=== PATIENT | male | born 1975 | race Native Hawaiian/Other Pacific Islander ===

== ENCOUNTER 2019-08-28 19:08 | Inpatient (IN) | payer MEDICAID, OTHER ==
--- NOTE | 2019-08-28 19:59 | ED ---
General Adult HPI - General Chief complaint: Psychiatric Symptoms Stated complaint: mental health Time Seen by Provider: 08/28/19 19:42 Source: patient, RN notes reviewed, old records reviewed Mode of arrival: ambulatory Limitations: no limitations - History of Present Illness Initial comments: This is a 44-year-old who presents emergency Department stating his history of depression. Patient states he stopped drinking several months ago and he hasn't gone back to it. Patient states for the last 2 weeks she's been very depressed and keeps having suicidal thoughts because of a specific plan but the thoughts are not going away and getting a little stronger so decided come in today and get help. Patient states he has not attempted suicide in the past. Does states she's been diagnosed depression and was treated past. Patient denies any physical complaints today. Patient denies any homicidal thoughts today. Patient denies hearing voices or seeing anything abnormal. - Related Data Allergies Allergy/AdvReac Type Severity Reaction Status Date / Time No Known Allergies Allergy Verified 08/28/19 19:34 Review of Systems ROS Statement: Those systems with pertinent positive or pertinent negative responses have been documented in the HPI. ROS Other: All systems not noted in ROS Statement are negative. Past Medical History Past Medical History: No Reported History History of Any Multi-Drug Resistant Organisms: None Reported Past Surgical History: Joint Replacement Past Psychological History: Anxiety, Depression Smoking Status: Never smoker Past Alcohol Use History: None Reported Past Drug Use History: None Reported General Exam - General Exam Comments Initial Comments: GENERAL: Patient is well-developed and well-nourished. Patient is nontoxic and well-hydrated and is in no acute distress ENT: Neck is soft and supple. No significant lymphadenopathy is noted. Oropharynx is clear. Moist mucous membranes. Neck has full range of motion without eliciting any pain. EYES: The sclera were anicteric and conjunctiva were pink and moist. Extraocular movements were intact and pupils were equal round and reactive to light. Eyelids were unremarkable. PULMONARY: Unlabored respirations. Good breath sounds bilaterally. No audible rales rhonchi or wheezing was noted. CARDIOVASCULAR: There is a regular rate and rhythm without any murmurs gallops or rubs. ABDOMEN: Soft and nontender with normal bowel sounds. SKIN: Skin is clear with no lesions or rashes and otherwise unremarkable. NEUROLOGIC: Patient is alert and oriented x3. Cranial nerves II through XII are grossly intact. Motor and sensory are also intact. Normal speech, volume and content. Symmetrical smile. MUSCULOSKELETAL: Normal extremities with adequate strength and full range of motion. LYMPHATICS: No significant lymphadenopathy is noted PSYCHIATRIC: Patient states he feels very depressed and is having constant suicidal thoughts over the last 2 weeks. Limitations: no limitations Course Vital Signs 08/28/19 19:32 Temperature 98.5 F Pulse Rate 121 H Respiratory 20 Rate Blood Pressure 119/81 O2 Sat by Pulse 98 Oximetry Medical Decision Making - Medical Decision Making Dr. Del Valle will be taking over the care of this patient at 9 PM Disposition Referrals: Deion Chou MD [Primary Care Provider] - 1-2 days
[2019-08-28 22:31] LABS: Amphetamine Screen,Urine Not Detected (NotDetected); Barbiturate Screen,Urine Not Detected (NotDetected); Benzodiazepines Screen,Urine Not Detected (NotDetected); Cocaine Screen,Urine Not Detected (NotDetected); Methadone Screen, Urine Not Detected (NotDetected); Opiate Screen,Urine Not Detected (NotDetected); Oxycodone Screen, Urine Not Detected (NotDetected); Phencyclidine Screen,Urine Not Detected (NotDetected); Tricyclic Antidepressant,Urine Not Detected (NotDetected); Urn Cannabinoid Scrn Not Detected (NotDetected)
[2019-08-28] MEDS ORDERED: MAGNESIUM HYDROXIDE 2,400 MG/10 ML CUP PO PRN (22:45)
[2019-08-28] MEDS ORDERED: MAG HYDROX/AL HYDROX/SIMETH 30 ML CUP PO PRN (22:45)
[2019-08-28] MEDS ORDERED: traZODone HCL 50 MG TAB PO SCH (23:30)
[2019-08-28] MEDS ORDERED: ZIPRASIDONE 20 MG VIAL IM PRN (23:45)
[2019-08-28] MEDS: LORazepam 0.5 MG TAB PO SCH (23:50)
[2019-08-29] MEDS ORDERED: ESCITALOPRAM 20 MG TAB PO SCH (09:00)
[2019-08-29] MEDS: MULTIVITAMINS, THERA 1 EACH TAB PO SCH (09:47)
[2019-08-29] MEDS: ACETAMINOPHEN TAB 325 MG TAB PO PRN (09:47)
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
[2019-08-29] MEDS ORDERED: hydrOXYzine PAMOATE 25 MG CAP PO ONE (17:45)
[2019-08-29 21:07] LABS: Appearance,Urine Clear (Clear); Bilirubin,Urine Negative (Negative); Blood,Urine Negative (Negative); Color,Urine Light Yellow; Glucose,Urine (UA) Negative (Negative); Ketones,Urine Negative (Negative); Leukocyte Esterase,Urine Negative (Negative); Nitrite,Urine Negative (Negative); PH, Urine 6.5 (5.0-8.0); Protein,Urine Negative (Negative); Specific Gravity,Urine 1.011 (1.001-1.035); Urobilinogen,Urine <2.0 mg/dL (<2.0)
[2019-08-29] MEDS: LORazepam 0.5 MG TAB PO SCH (21:11)
[2019-08-29] MEDS: QUEtiapine 50 MG TAB PO SCH (21:11)
[2019-08-29] MEDS: LITHIUM CARBONATE 150 MG CAP PO SCH (21:11)
[2019-08-30] MEDS: DULoxetine HCL 30 MG CAPSULE.DR PO SCH (08:26)
[2019-08-30] MEDS: LITHIUM CARBONATE 150 MG CAP PO SCH ×2 (08:26→20:48)
[2019-08-30] MEDS: MULTIVITAMINS, THERA 1 EACH TAB PO SCH (08:26)
[2019-08-30] MEDS: ACETAMINOPHEN TAB 325 MG TAB PO PRN ×2 (08:26→16:48)
[2019-08-30 09:58] LABS: Basophils # (A) 0.1 k/uL (0-0.2); Basophils % (A) 1 %; Eosinophils # (A) 0.1 k/uL (0-0.7); Eosinophils % (A) 1 %; HCT 42.2 % (39.0-53.0); Lymphocytes % (A) 21 %; MCH 29.7 pg (25.0-35.0); MCHC 33.2 g/dL (31.0-37.0); MCV 89.7 fL (80.0-100.0); Mean Platelet Volume 6.6; Monocytes # (A) 0.4 k/uL (0-1.0); Monocytes % (A) 4 %; Neutrophils % (A) 73 %; Platelet Count 366 k/uL (150-450); RBC 4.71 m/uL (4.30-5.90); RDW 12.7 % (11.5-15.5); WBC 9.6 k/uL (3.8-10.6)
--- NOTE | 2019-08-30 11:50 | P.PN ---
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 He slept 7 hours last night , alcohol twice but was able to get back to sleep. His primary complaint was anxiety. He talked about a chronic feelings attention that fluctuates in intensity. Symptoms include "racing thoughts" and is unable to "calm" his mind. He has difficulty sitting still. He denied side effects initial dose of Cymbalta and lithium. He is participation in therapeutic groups and activities. He has posed no management problem. Objective - Vital Signs Vital signs: Vital Signs Temp 97.7 F 08/30/19 06:11 Pulse 108 H 08/30/19 06:11 Resp 16 08/30/19 06:11 BP 119/81 08/30/19 06:11 Pulse Ox 100 08/29/19 06:16 - Exam He presented as a tall, moderately obese male who was restless throughout the interview. He made eye contact and attended to the interview. His speech was spontaneous and intermittently pressured. His affect was anxious. He denied suicidal homicidal ideation. He did not express ideas of reference, thought insertion, thought broadcasting or paranoid thoughts. His thinking was abstract and associations were coherent, logical and goal directed. He denied hallucinations did not appear to be responding to internal stimuli. - Labs CBC & Chem 7: 08/30/19 09:13 Assessment and Plan Assessment: Ashley reports prominent anxiety symptoms not relieved by the initial doses of duloxetine and/or Seroquel. I wonder if his anxiety is related to an underlying mood disorder since his speech is occasionally pressured. Plan: Continue hospitalization. Safety precautions. Continue to duloxetine and l ithium and titrated according to clinical response and tolerance. Continue Seroquel 50 mg at bedtime when necessary for sleep. Continue lorazepam 0.5 mg at bedtime and consider switching from lorazepam to clonazepam. Continue participation in therapeutic groups and activities. Evaluate clinical status response to treatment daily basis.
[2019-08-30 13:55] LABS: ALT 27 U/L (4-49); AST 27 U/L (17-59); African American GFR (CKD) >90 (>60 ml/min/1.73 sqM); Albumin 4.8 g/dL (3.5-5.0); Alkaline Phosphatase 76 U/L (38-126); Anion Gap 11 mmol/L; Blood Urea Nitrogen 17 mg/dL (9-20); Calcium 9.9 mg/dL (8.4-10.2); Carbon Dioxide 22 mmol/L (22-30); Chloride 103 mmol/L (98-107); Glucose 142 mg/dL (74-99); Non-African American GFR(CKD) >90 (>60 ml/min/1.73 sqM); Potassium 4.6 mmol/L (3.5-5.1); Sodium 136 mmol/L (137-145); Total Bilirubin 0.6 mg/dL (0.2-1.3); Total Protein 7.6 g/dL (6.3-8.2)
[2019-08-30 15:15] LABS: Cholesterol 186 mg/dL (<200); HDL Cholesterol 42 mg/dL (40-60); LDL Cholesterol,Calculated 105 mg/dL (0-99); Triglycerides 194 mg/dL (<150)
[2019-08-30 18:26] LABS: Hemoglobin A1C 5.6 % (4.0-6.0)
[2019-08-30] MEDS: LORazepam 0.5 MG TAB PO SCH (20:49)
[2019-08-30] MEDS: QUEtiapine 50 MG TAB PO SCH (20:49)
[2019-08-31] MEDS: DULoxetine HCL 30 MG CAPSULE.DR PO SCH (08:25)
[2019-08-31] MEDS: LITHIUM CARBONATE 150 MG CAP PO SCH ×3 (08:25→20:49)
[2019-08-31] MEDS: MULTIVITAMINS, THERA 1 EACH TAB PO SCH (08:25)
[2019-08-31] MEDS: ACETAMINOPHEN TAB 325 MG TAB PO PRN ×2 (08:25→16:53)
--- NOTE | 2019-08-31 13:39 | P.PN ---
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 He reports continued feelings of anxiety the change from admission. He is sleeping through the night after taking Seroquel 50 mg at bedtime. He described experiencing a sense of "calm" after taking the evening dose of Ativan. He continues to feel depressed but denied thoughts of or suicide. He denied hallucinations. Objective - Vital Signs Vital signs: Vital Signs Temp 98.0 F 08/31/19 06:37 Pulse 105 H 08/31/19 06:37 Resp 16 08/31/19 06:37 BP 137/85 08/31/19 06:37 Pulse Ox 100 08/29/19 06:16 - Exam He was neatly groomed, casually dressed, pleasant and cooperative. His speech was at times rapid. He was anxious. He had a blunted but bright facial expression. He denied suicidal ideation or wishes. His thinking was abstract, coherent and goal directed. He did not appear to be responding to internal stimuli. - Labs CBC & Chem 7: 08/30/19 09:13 08/30/19 09:13 Labs: Abnormal Lab Results - Last 24 Hours (Table) 08/30/19 Range/Units 09:13 Sodium 136 L (137-145) mmol/L Glucose 142 H (74-99) mg/dL Triglycerides 194 H (<150) mg/dL LDL Cholesterol, Calc 105 H (0-99) mg/dL Assessment and Plan Assessment: He continues to described mild to moderate symptoms of depression and anxiety minimally change from admission. Plan: Increase duloxetine to 60 mg daily and lithium to 450 mg 3 times a day. Continue Seroquel 50 mg at bedtime and Ativan 0.5 mg in the evening.
[2019-08-31] MEDS: QUEtiapine 50 MG TAB PO SCH (20:48)
[2019-08-31] MEDS: LORazepam 0.5 MG TAB PO SCH (20:49)
[2019-09-01] MEDS: LITHIUM CARBONATE 150 MG CAP PO SCH ×3 (08:31→21:07)
[2019-09-01] MEDS: DULoxetine HCL 60 MG CAPSULE.DR PO SCH ×3 (08:31→08:33)
[2019-09-01] MEDS: MULTIVITAMINS, THERA 1 EACH TAB PO SCH (08:32)
[2019-09-01] MEDS: ACETAMINOPHEN TAB 325 MG TAB PO PRN ×2 (08:34→16:39)
--- NOTE | 2019-09-01 16:05 | P.PN ---
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 We discussed treatment options and agreed to a trial of Klonopin 0.5 mg by mouth twice a day. The experience some diarrhea and a slight hand tremor with the increased dose of lithium. Objective - Vital Signs Vital signs: Vital Signs Temp 98.3 F 09/01/19 06:48 Pulse 105 H 09/01/19 06:48 Resp 18 09/01/19 06:48 BP 113/85 09/01/19 06:48 Pulse Ox 100 08/29/19 06:16 Intake & Output 08/31/19 09/01/19 09/01/19 18:59 06:59 18:59 Weight 115.2 kg - Exam He is neatly groomed, pleasant and cooperative. He made eye contact and attended the interview. He had an anxious facial expression. His affect was anxious but expressive. He denied suicidal ideation or homicidal ideation. His thinking was organized, coherent and goal directed. - Labs CBC & Chem 7: 08/30/19 09:13 08/30/19 09:13 Assessment and Plan Assessment: He continues to described mild to moderate symptoms of depression and anxiety minimally change from admission. He is showing side effects to lithium. Plan: Continue duloxetine to 60 mg daily and lithium to 450 mg 3 times a day. Contin ue Seroquel 50 mg at bedtime. Discontinue Ativan 0.5 mg in the evening and start Klonopin 0.5 mg by mouth twice a day. Obtain lithium level after steady state.
[2019-09-01] MEDS: clonazePAM 0.5 MG TAB PO SCH (21:08)
[2019-09-01] MEDS: QUEtiapine 50 MG TAB PO SCH (21:08)
[2019-09-02] MEDS: LITHIUM CARBONATE 150 MG CAP PO SCH ×3 (09:00→21:18)
[2019-09-02] MEDS: MULTIVITAMINS, THERA 1 EACH TAB PO SCH (09:00)
[2019-09-02] MEDS: clonazePAM 0.5 MG TAB PO SCH ×2 (09:00→21:18)
[2019-09-02] MEDS: DULoxetine HCL 60 MG CAPSULE.DR PO SCH (09:01)
--- NOTE | 2019-09-02 12:10 | P.PN ---
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 He reported that his anxiety is much improved and on a 10 point Likert scale rated his anxiety as a "3". He complains of continued feelings of depression but denying current suicidal ideation, plan or intent. His Likert rating of his depression was "7." He is continuing to experience "someone" diarrhea and a fine hand tremor. 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 We discussed treatment and agreed to reduce to at bedtime dose of Seroquel with the intent to discontinue it before discharge. To have a lithium level and BMP drawn tomorrow. Objective - Vital Signs Vital signs: Vital Signs Temp 98.2 F 09/02/19 06:41 Pulse 88 09/02/19 06:41 Resp 18 09/02/19 06:41 BP 122/81 09/02/19 06:41 Pulse Ox 95 09/02/19 06:41 Intake & Output 09/01/19 09/02/19 09/02/19 18:59 06:59 18:59 Weight 115.2 kg - Exam He presented as a tall casually groomed and casually dressed 44-year-old male who was pleasant on approach. He made eye contact and attended the interview. He had no distinguishing features or prominent physical abnormalities. He had a bright facial expression. He was alert and oriented to person, place and time. He showed no abnormality of psychomotor activity. His speech was spontaneous with normal rate, rhythm and volume. His affect was stable and appropriate. He did not appear acutely depressed or anxious. He denied suicidal or homicidal ideation. He did not express ideas reference or paranoid ideation. His thinking was abstract and associations were coherent, logical and goal directed. He denied hallucinations and did not appear to be responding to internal stimuli. - Labs CBC & Chem 7: 08/30/19 09:13 08/30/19 09:13 Assessment and Plan Assessment: He reported a marked improvement anxiety but continued feelings depression but the severity of his depression is not consistent with his presentation. Plan: Decrease Seroquel to 25 mg at bedtime and discontinued before discharge. Continue current dose of lithium, duloxetine and clonazepam. Social work to coordinate discharge and aftercare services.
[2019-09-02] MEDS ORDERED: QUEtiapine 25 MG TAB PO SCH (21:00)
[2019-09-03] MEDS: DULoxetine HCL 60 MG CAPSULE.DR PO SCH (08:49)
[2019-09-03] MEDS: clonazePAM 0.5 MG TAB PO SCH ×2 (08:50→21:06)
[2019-09-03] MEDS: MULTIVITAMINS, THERA 1 EACH TAB PO SCH (08:50)
[2019-09-03] MEDS: LITHIUM CARBONATE 150 MG CAP PO SCH ×3 (08:50→21:06)
--- NOTE | 2019-09-03 13:20 | P.PN ---
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 He was initially upbeat and positived. He rated his anxiety and depression as a "3" on a 10 point Likert scale. His mood changed when began to talk about aftercare and discharge. He is uncertain if she will return to the three-quarter house. He does not have friends or family with whom he may live temporarily. He does not have money to pay for another three-quarter house or for room and board. He was distressed by the thought of being discharged from snf. One of his objections had to do with his employment. 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 The laboratory was laying in drawing blood for lithium level this morning and I asked them to rescheduled for tomorrow morning before sister first dose of lithium. Objective - Vital Signs Vital signs: Vital Signs Temp 98.2 F 09/03/19 07:07 Pulse 87 09/03/19 07:07 Resp 18 09/03/19 07:07 BP 121/77 09/03/19 07:07 Pulse Ox 95 09/02/19 06:41 - Exam He presented as a casually dressed and groomed 44-year-old male who is moderately obese. He made eye contact and attended to the interview. He initially had a bright facial expression but it became more distressed and anxious as we discuss discharge. He showed no abnormality of psychomotor activity. Her speech had normal rate, rhythm and volume. His affect was anxious but stable and appropriate. He denied suicidal ideation or wishes. He denied homicidal ideation. He did not express ideas reference, paranoid ideation or delusions. His thinking was abstract and associations were coherent and logical. He denied hallucinations and did not appear to responding to internal stimuli. - Labs CBC & Chem 7: 08/30/19 09:13 08/30/19 09:13 Assessment and Plan Assessment: He is much improved from admission and reported a marked decrease in subjective feelings of depression and anxiety. However, he is homeless and is anxious about living in a snf. Plan: Discontinue Seroquel 25 mg at bedtime. Continue other medication as prescribed. He is working with group social worker regarding discharge and aftercare.
--- NOTE | 2019-09-03 22:43 | P.CONS ---
History of Present Illness - Reason for Consult Consult date: 09/02/19 medical managment - Chief Complaint depression - History of Present Illness Cuong Garay is a 44 yo M with PMH of depression and anxiety, migraines who presented to the ED complaining of worsening depression with suicidal thoughts. He states that his depression has been a lifelong struggle and he has currently been under more stress recently so has had difficulty sleeping, anhedonia and anxiety. He tried lexapro recently but does not feel that medication was adequately helping. He has no other concerns. In the ED his vitals were stable, labs unremarkable. Review of Systems All systems: negative Constitutional: Denies chills, Denies fever Eyes: denies blurred vision, denies pain Ears, nose, mouth and throat: Denies headache, Denies sore throat Cardiovascular: Denies chest pain, Denies shortness of breath Respiratory: Denies cough Gastrointestinal: Denies abdominal pain, Denies diarrhea, Denies nausea, Denies vomiting Musculoskeletal: Denies myalgias Integumentary: Denies pruritus, Denies rash Neurological: Denies numbness, Denies weakness Psychiatric: Reports as per HPI, Reports anxiety, Reports anxiety attacks, Reports depression, Reports suicidal ideation Endocrine: Denies fatigue, Denies weight change Past Medical History Past Medical History: No Reported History History of Any Multi-Drug Resistant Organisms: None Reported Past Surgical History: Joint Replacement Past Anesthesia/Blood Transfusion Reactions: No Reported Reaction Smoking Status: Never smoker Medications and Allergies Home Medications Medication Instructions Recorded Confirmed Type HYDROcodone/APAP 5-325MG [[place] 1 tab PO Q8H PRN 08/28/19 08/28/19 History 5-325] LORazepam [Ativan] 0.5 mg PO DAILY PRN 08/28/19 08/29/19 History Multivitamins, Thera [Multivitamin 1 tab PO DAILY 08/28/19 08/28/19 History (formulary)] ALPRAZolam [Xanax] 0.25 mg PO HS 08/29/19 08/29/19 History Escitalopram [Lexapro] 10 mg PO DAILY 08/29/19 08/29/19 History Ondansetron Odt [Zofran Odt] 8 mg PO Q8HR PRN 08/29/19 08/29/19 History SUMAtriptan SUCCINATE [Imitrex] 50 mg PO BID PRN 08/29/19 08/29/19 History traZODone HCL 50 mg PO HS 08/29/19 08/29/19 History Allergies Allergy/AdvReac Type Severity Reaction Status Date / Time No Known Allergies Allergy Verified 08/28/19 22:59 Physical Exam Vitals: Vital Signs Temp Pulse Pulse Resp BP BP 09/03/19 16:12 110 H 18 130/79 09/03/19 07:07 98.2 F 87 18 121/77 General: well nourished, well developed, NAD. Vitals reviewed Eyes: PERRL, EOMI, conjunctiva normal HENT: normocephalic, mucus membranes moist Neck: supple, no JVD Lungs: normal respiratory effort, no wheezes or rales CV: Regular rate and rhythm, no murmur. Peripheral pulses 2+ Abdomen: soft, nondistended, no organomegaly Lymph: no cervical or axillary LAD Skin: warm and dry. Neuro: A&Ox3 Psych: good eye contact, speech normal in rate and volume, Results CBC & Chem 7: 08/30/19 09:13 08/30/19 09:13 Assessment and Plan (1) Suicidal ideation Current Visit: Yes Status: Acute Code(s): R45.851 - SUICIDAL IDEATIONS SNOMED Code(s): 6571162 (2) Severe recurrent major depression Current Visit: Yes Status: Acute Code(s): F33.2 - MAJOR DEPRESSV DISORDER, RECURRENT SEVERE W/O PSYCH FEATURES SNOMED Code(s): 680121321593 Plan: 1. Suicidal ideation. MDD. Management per psychiatry 2. Migraine. Tylenol prn
[2019-09-04 06:24] VITALS: TEMP 97.9
[2019-09-04] MEDS: MULTIVITAMINS, THERA 1 EACH TAB PO SCH (08:30)
[2019-09-04] MEDS: LITHIUM CARBONATE 150 MG CAP PO SCH ×3 (08:30→20:15)
[2019-09-04] MEDS: DULoxetine HCL 60 MG CAPSULE.DR PO SCH (08:30)
[2019-09-04] MEDS: clonazePAM 0.5 MG TAB PO SCH ×2 (08:30→20:15)
[2019-09-04 08:59] LABS: African American GFR (CKD) >90 (>60 ml/min/1.73 sqM); Anion Gap 6 mmol/L; Blood Urea Nitrogen 19 mg/dL (9-20); Carbon Dioxide 28 mmol/L (22-30); Chloride 104 mmol/L (98-107); Glucose 100 mg/dL (74-99); Lithium 0.7 mmol/L; Non-African American GFR(CKD) >90 (>60 ml/min/1.73 sqM); Potassium 4.7 mmol/L (3.5-5.1); Sodium 138 mmol/L (137-145)
[2019-09-04] MEDS: ACETAMINOPHEN TAB 325 MG TAB PO PRN (15:12)
--- NOTE | 2019-09-04 15:51 | P.PN ---
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 He was again acutely distressed and complained of being unable to sleep last night. He requested to restart Seroquel for sleep. He is resistant to discharge and alleged that he would "jump off a bridge" if he were discharged to a [facility]. I explained that [facility] nor [facility] provide housing. He does not have family or friends with whom he may live and he is unable to afford his own place then our only option would be a referral to a [facility]. Objective - Vital Signs Vital signs: Vital Signs Temp 97.9 F 09/04/19 05:50 Pulse 82 09/04/19 05:50 Resp 15 09/04/19 05:50 BP 120/87 09/04/19 05:50 Pulse Ox 95 09/02/19 06:41 - Exam He presented as a tall casually groomed and dressed 44-year-old male who was pleasant on approach. He had no abnormality of psychomotor activity. His movements were not retarded and he was not agitated or restless. Speech was spontaneous with slight increase in rate and rhythm but normal volume. He had no articulation difficulties. He was affect was anxious at times intense. He expressed vague suicidal ideation and wishes only in the context of discussing referral to [facility]. He ruminated about his financial and living situation. He did not express ideas reference, paranoid ideation or delusions. His thinking was abstract and associations were coherent and logical. He denied hallucinations and did not appear to responding to internal stimuli. - Labs CBC & Chem 7: 08/30/19 09:13 09/04/19 07:46 Labs: Abnormal Lab Results - Last 24 Hours (Table) 09/04/19 Range/Units 07:46 Glucose 100 H (74-99) mg/dL [place] level was 0.7 Assessment and Plan Assessment: He is much improved from admission and reported a marked decrease in subjective feelings of depression and anxiety. However, he is homeless and is anxious about living in a [facility]. Plan: Restart Seroquel 25 mg at bedtime. Continue current dose of lithium and Cymbalta. Continue work with the social security specialist regarding discharge and aftercare services.
[2019-09-04] MEDS: QUEtiapine 25 MG TAB PO SCH (20:15)
[2019-09-05] MEDS: MULTIVITAMINS, THERA 1 EACH TAB PO SCH (08:56)
[2019-09-05] MEDS: clonazePAM 0.5 MG TAB PO SCH ×2 (08:56→20:51)
[2019-09-05] MEDS: LITHIUM CARBONATE 150 MG CAP PO SCH ×3 (08:56→20:51)
[2019-09-05] MEDS: DULoxetine HCL 60 MG CAPSULE.DR PO SCH (08:56)
[2019-09-05 13:59] VITALS: BMI 32.5
--- NOTE | 2019-09-05 14:05 | P.PN ---
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 He slept well last night with the 25 mg dose of Seroquel. He found a room and board through partial friend but cannot move and until the room is available on Monday. He called his mother who agreed to advance to $500 for the first month's rent. I told that I cannot justify shae ping the hospital until Monday. I suggested he speak with the family and friends otherwise would have to refer him to a snf. During therapeutic groups and activities since affect is bright. He is engaged with activities and socializes with peers and staff. He is able to concentrate on the activities. He is often seen lounging in his bed or in the day room reading a novel. Objective - Vital Signs Vital signs: Vital Signs Temp 97.9 F 09/05/19 07:10 Pulse 88 09/05/19 07:10 Resp 16 09/05/19 07:10 BP 116/77 09/05/19 07:10 Pulse Ox 95 09/02/19 06:41 - Exam He presented as a tall casually groomed and dressed 44-year-old male who was pleasant on approach. He had no abnormality of psychomotor activity. Showed no abnormality of psychomotor activity. His speech was spontaneous with normal rate, rhythm and volume. He had no articulation difficulties. He was anxious. He denied suicidal ideation and wishes. He did not express ideas reference, paranoid ideation or delusions. His thinking was abstract and associations were coherent and logical. He denied hallucinations and did not appear to responding to internal stimuli. - Labs CBC & Chem 7: 08/30/19 09:13 09/04/19 07:46 Assessment and Plan Assessment: He is much improved from admission but continues to be anxious about his financial situation and lack of permanent housing. Plan: Plan for discharge on 09/06/2019. Continue Seroquel 25 mg at bedtime. Continue other medications as prescribed.
[2019-09-05] MEDS: QUEtiapine 25 MG TAB PO SCH (20:51)
[2019-09-06] MEDS: DULoxetine HCL 60 MG CAPSULE.DR PO SCH (08:41)
[2019-09-06] MEDS: LITHIUM CARBONATE 150 MG CAP PO SCH (08:41)
[2019-09-06] MEDS: MULTIVITAMINS, THERA 1 EACH TAB PO SCH (08:41)
[2019-09-06] MEDS: clonazePAM 0.5 MG TAB PO SCH (08:41)
[2019-09-06 08:42] VITALS: BP 132/88; PULSE 113; RESP 20
--- NOTE | 2019-09-06 13:29 | P.DS ---
Providers Date of admission: 08/28/19 22:42 Attending physician: Alexandro Bell MD Consults: 08/28/19 22:45 Consult Physician Routine Consulting Provider: Deion Chou Consult Reason/Comments: H & P and medical care Do you want consulting provider notified?: Yes Primary care physician: Deion Chou MD - Discharge Diagnosis(es) (1) Suicidal ideation Current Visit: Yes Status: Resolved Priority: Low (2) Severe recurrent major depression Current Visit: Yes Status: Chronic Priority: Low (3) Financial problems Current Visit: Yes Status: Chronic Priority: High (4) Employment problem Current Visit: Yes Status: Chronic Priority: High (5) Problem related to housing and economic circumstances Current Visit: Yes Status: Acute Priority: High Hospital Course: He is a 44-year-old single male who presented to the [facility] with complaints of increasing depression, anxiety and suicidal ideation. He described a long history of involvement with psychiatric services beginning around age 6 when he was diagnosed with ADHD. He was treated with psychostimulants throughout elementary and middle school until he left school when he was 17 years old. As an adult he received with several medications including Cymbalta, Effexor, Celexa, Lexapro, Prozac, trazodone and Wellbutrin in addition to prescription of most benzodiazepine medications (Xanax, clonazepam, Ativan) possible augmentation with Abilify. The depression and anxiety has been present thoughout his adult life, fluctuates in intensity and worsens during periods of stress. His depression and anxiety worsened since he's been living in a three-quarter house ([facility]). He described most symptoms of depression including anhedonia, insomnia (with initial and middle middle insomnia), restlessness and periods of agitation, persistent feelings of fatigue, feelings of worthlessness, indecisiveness and recurring thoughts of . He denied specific suicidal intent or plan. He also described persistent anxiety that is best described as an apprehensive expectation. This is a daily occurrence over the last "several months". He has difficulty controlling the worry. He has periods of increased anxiety that usually last for sustained period of time, usually several days, where afterwards he feels "lethargic and fatigued." He denied experiencing discrete episodes of anxiety that crescendo consistent with a panic attack. He denied experiencing obsessions or compulsions. He believes he is had periods of increased energy in the past but denied that friends and family have expressed concern about his behavior or judgment. He was vague about the length and duration of these episodes. He denied these periods included grandiosity, racing thoughts, marked agitation or involvement in activities with a high potential for painful consequences. He denied experiencing such psychotic symptoms as hallucinations, paranoia, ideas reference etc. He's been abstinent from alcohol for 7 months. He denied use of other drugs to get high, help him sleep or changes mood. He admitted him to the psychiatric unit the care of this underwriter solicitation director. Provided a copy a biopsychosocial assessment. The performance consultant shear operator completed initial physical exam and medical history and diagnosed migraine headaches. After reviewing his past psychiatric history he gave it to restart duloxetine and titrated the dose to 60 mg daily. We THE antidepressant with lithium and at 450 mg 3 times a day he had a serum level of 0.7. He perseverates about anxiety and complained that he found relief of anxiety from time benzodiazepines. We gradually agreed to clonazepam 0.5 mg twice a day. We addressed his sleep complaints with quetiapine 25 mg by mouth daily at bedtime. He participated in therapeutic groups and activities. He posed no management problem and had no episodes of behavioral dyscontrol. Throughout the hospitalization his pre sentation was inconsistent with subjective complaints. Although he complained of anxiety and depression he was social, and outgoing. He spends his free time reading novels. He was resistant to discharge and when pressed was able to identify resources. At time of discharge he presented as a casually groomed 44-year-old male who was pleasant on approach. He made eye contact and attended to interview. He had no distinguishing features or prominent physical modalities. He had a bright facial expression. He was alert and oriented to person, place and time. He showed no irritability psychomotor activity. His speech was spontaneous with normal rate, rhythm and volume. His affect was bright, stable and appropriate. He denied suicidal ideation, wishes or homicidal ideati on. He denied feeling hopeless, helpless or worthless. He did not express ideas reference, paranoid ideation or delusions. His thinking was abstract and associations were coherent and logical. He denied hallucinations and did not appear to be responding to internal stimuli. Patient Condition at Discharge: Stable Plan - Discharge Summary Discharge Rx Participant: No New Discharge Prescriptions: New DULoxetine HCL [Cymbalta] 60 mg PO DAILY 30 Days #30 capsule. clonazePAM [KlonoPIN] 0.5 mg PO BID 30 Days #60 tab [place] 450 mg PO TID 30 Days #60 cap QUEtiapine [SEROquel] 25 mg PO HS 30 Days #30 tab Continue Multivitamins, Thera [Multivitamin (formulary)] 1 tab PO DAILY Ondansetron Odt [Zofran ODT] 8 mg PO Q8HR PRN PRN Reason: Nausea SUMAtriptan SUCCINATE [Imitrex] 50 mg PO BID PRN PRN Reason: Migraine Headache Discontinued LORazepam [Ativan] 0.5 mg PO DAILY PRN PRN Reason: Anxiety HYDROcodone/APAP 5-325MG [[place] 5-325] 1 tab PO Q8H PRN PRN Reason: Pain traZODone HCL 50 mg PO HS ALPRAZolam [Xanax] 0.25 mg PO HS Escitalopram [Lexapro] 10 mg PO DAILY Discharge Medication List Multivitamins, Thera [Multivitamin (formulary)] 1 tab PO DAILY 08/28/19 [History] Ondansetron Odt [Zofran ODT] 8 mg PO Q8HR PRN 08/29/19 [History] SUMAtriptan SUCCINATE [Imitrex] 50 mg PO BID PRN 08/29/19 [History] DULoxetine HCL [Cymbalta] 60 mg PO DAILY 30 Days #30 capsule. 09/06/19 [Rx] [place] 450 mg PO TID 30 Days #60 cap 09/06/19 [Rx] QUEtiapine [SEROquel] 25 mg PO HS 30 Days #30 tab 09/06/19 [Rx] clonazePAM [KlonoPIN] 0.5 mg PO BID 30 Days #60 tab 09/06/19 [Rx] Follow up Appointment(s)/Referral(s): [facility] [Outside] - 09/10/19 10:30 am (walk in intake ) Deion Chou MD [Primary Care Provider] - 1-2 days Patient Instructions/Handouts: Depression (DC), Help Prevent Suicide (DC) Activity/Diet/Wound Care/Special Instructions: Activity and diet as tolerated. Avoid the use of street drugs and alcohol. Take all medications as prescribed. When you are in need of refills on your medications please contact your medical provider and/or outpatient psychiatrist to have this done. Please go to scheduled outpatient appointment for aftercare treatment. If symptoms return or become worse, call the crisis line at and/or go to the nearest emergency room for evaluation. Discharge Disposition: HOME SELF-CARE
== END 2019-09-06 13:26 | disposition home or self-care (01) | DRG 885 ==
LOC: EC 19:08 → 3MHU 22:42
PROVIDERS: ADMIT Psychiatry & Neurology Psychiatry; ATTEND Psychiatry & Neurology Psychiatry
DX: F33.2 Major depressive disorder, recurrent severe without psychotic features (principal); R45.851 Suicidal ideations; F06.4 Anxiety disorder due to known physiological condition; F41.1 Generalized anxiety disorder; Z60.4 Social exclusion and rejection; F90.9 Attention-deficit hyperactivity disorder, unspecified type; Z59.0 Homelessness; Z79.899 Other long term (current) drug therapy; Z56.9 Unspecified problems related to employment
CPT/HCPCS: 80048; 80053; 80061; 80178; 80306; 81003; 82075; 83036; 84443; 85025